=== PATIENT | male | born 1975 | race African-American/Black ===

== ENCOUNTER 2019-09-06 05:27 | Emergency (ER) | payer MEDICAID ==
[~2019-09-06] VITALS: Ht 188 cm; Wt 131.1 kg
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
[2019-09-06 05:23] VITALS: BP 135/86
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
--- NOTE | 2019-09-06 06:04 | NUR ---
ED Nurse Note: pt unable to provide urine sample at this time. he appears to be dozing off but arousable to his name, lashanda signs remain stable on [address] helper
--- NOTE | 2019-09-06 06:55 | NUR ---
ED Nurse Note: pt provided urine sample that was cold, pt appeared to pour drinking water at bedside into sample cup. pt was asked to provide a second sample but states he is unable to. pt ambulated down to CT in stable condition
--- NOTE | 2019-09-06 07:06 | NUR ---
ED Nurse Note: report given to Radha Knapp RN
--- NOTE | 2019-09-06 07:17 | NUR ---
ED Nurse Note: pt returned from CT on stable condition.
--- NOTE | 2019-09-06 07:45 | NUR ---
ED Nurse Note: PT ALEKSANDAR. ERMD MADE AWARE
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
== END 2019-09-06 07:45 | disposition home or self-care (01) ==
LOC: EDBD 05:27 → EMR 05:37
DX: T50.904A Poisoning by unspecified drugs, medicaments and biological substances, undetermined, initial encounter (principal); F14.10 Cocaine abuse, uncomplicated; Y92.9 Unspecified place or not applicable; F32.9 Major depressive disorder, single episode, unspecified; E66.9 Obesity, unspecified; Z68.37 Body mass index [BMI] 37.0-37.9, adult
CPT/HCPCS: 70450; 80307; 93005; Z7502; 99284